=== PATIENT | male | born 1965 | race Caucasian/White ===

== ENCOUNTER → 2023-04-20 16:03 | Outpatient (BNVA) | payer OTHER, SELFPAY | PROVIDERS: Visit Provider Physician Assistant | DX: S51.812A Laceration without foreign body of left forearm, initial encounter (principal); V68.0XXA Driver of heavy transport vehicle injured in noncollision transport accident in nontraffic accident, initial encounter; W25.XXXA Contact with sharp glass, initial encounter | CPT/HCPCS: 12001; 99204 ==

== ENCOUNTER → 2023-04-24 07:56 | Outpatient (BNVA) | payer OTHER, SELFPAY | PROVIDERS: Visit Provider Internal Medicine | DX: S16.1XXA Strain of muscle, fascia and tendon at neck level, initial encounter (principal); S29.012A Strain of muscle and tendon of back wall of thorax, initial encounter; S50.812A Abrasion of left forearm, initial encounter; V68.0XXA Driver of heavy transport vehicle injured in noncollision transport accident in nontraffic accident, initial encounter; W25.XXXA Contact with sharp glass, initial encounter | CPT/HCPCS: 99213 ==